=== PATIENT | male | born 2000 | race American Indian/Alaskan Native ===

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

== ENCOUNTER 2019-01-07 15:35 | Emergency (ER) | payer BC, OTHER ==
--- NOTE | 2019-01-07 15:42 | Emergency Department Report ---
Blank Doc - Documentation Documentation: This is a 18-year-old male that presents with right shoulder dislocation after washing hands. Has history of this. This initial assessment/diagnostic orders/clinical plan/treatment(s) is/are subject to change based on patient's health status, clinical progression and re-assessment by fellow clinical providers in the ED. Further treatment and workup at subsequent clinical providers discretion. Patient/guardians urged not to elope from the ED as their condition may be serious if not clinically assessed and managed. Initial orders include: 1- Patient sent to [facility] for further evaluation and treatment 2- xray
[2019-01-07] MEDS ORDERED: KETALAR IV ONE (15:55)
[2019-01-07] MEDS ORDERED: NACL 0.9% 500 ML 500 ML IV ONE (15:55)
[2019-01-07] MEDS ORDERED: DIPRIVAN 10 MG/ML IV ONE (15:55)
[2019-01-07] MEDS ORDERED: ZOFRAN IV ONE (15:55)
--- NOTE | 2019-01-07 15:56 | Emergency Department Report ---
Upper Extremity - HPI Chief Complaint: Extremity Injury, Upper Stated Complaint: R SHOULDER DISLOCATED Time Seen by Provider: 01/07/19 15:41 Upper Extremity: Right Shoulder Occurred When: Today Mechanism: Twist Severity: moderate Symptoms: Yes Pain with Movement, Yes Deformity, Yes Limited Range of Movement, No Numbness, No Weakness, No Swelling, No Bruising/Ecchymosis, No Laceration or Abrasion Other History: This is a pleasant 18-year-old gentleman. The patient is not known to this provider previously. Patient has a history of recurrent right- sided shoulder dislocations. Patient presents to the ER today with a complaint of right-sided shoulder dislocation. It happened after lifting. He denies other injuries and he denies other complaints. He makes no endorsement of weakness and numbness. His dislocation spontaneously reduced while he was getting initial plain films. He now has no complaints or pain in his right shoulder, and endorses full range of motion. ED Review of Systems ROS: Stated complaint: R SHOULDER DISLOCATED Other details as noted in HPI Comment: All other systems reviewed and negative Musculoskeletal: arthralgia, myalgia ED Past Medical Hx - Past Medical History Previous Medical History?: No - Surgical History Past Surgical History?: Yes Additional Surgical History: head - Social History Smoking Status: Current Every Day Smoker Substance Use Type: Alcohol, Marijuana Upper Extremity Exam - Exam General: Vital signs noted. No distress. Alert and acting appropriately. Extraocular movements intact. Tongue midline. No facial droop. Facial sensation intact to light touch in the V1, V2, V3 distribution bilaterally. 5 and 5 strength in 4 extremities.. Sensation is intact to light touch in 4 extremities. Gait within normal limits. 2+ pulses noted in the bilateral upper, lower extremities. Compartments soft. No long bony tenderness. The pelvis is stable. S1, S2, regular rate and rhythm. No abdominal tenderness. No rebound, guarding or peritoneal signs. Breath sounds clear to auscultation bilaterally. Head and Torso: No HEENT Abnormality, No Neck Tenderness, No Chest/Lungs Abnormality, No Abdominal Tenderness, No Back Tenderness Shoulder Exam: Yes Shoulder Tenderness, Yes Normal Range of Motion in Shoulder, No Clavicle Tenderness, No Shoulder Deformity, No AC Joint Tenderness Arm Exam: No Arm/Humerus Tenderness, No Arm Deformity Elbow: No Elbow Tenderness, No Normal Range of Motion in Elbow, No Elbow Deformity Forearm: No Forearm Tenderness, No Forearm Deformity, No Pain with Pronation, No Pain with Supination Wrist: Yes Normal ROM in Wrist, No Wrist Tenderness, No Wrist Deformity, No Snuffbox Tenderness, No Pain with Axial Thumb Compression Hand: Yes Normal ROM in Digit(s), No Hand Tenderness, No Hand Deformity, No Digit Tenderness, No Digit(s) Deformity, No Tendon Dysfunction CMS Exam: Yes Normal Distal Pulses, Yes Normal Capillary Refill, No Broken Skin, No Normal Distal Sensation ED Course Vital Signs 01/07/19 15:42 Temperature 98.2 F Pulse Rate 50 L Respiratory 16 Rate Blood Pressure 130/68 O2 Sat by Pulse 99 Oximetry ED Medical Decision Making - Lab Data Vital Signs 01/07/19 15:42 Temperature 98.2 F Pulse Rate 50 L Respiratory 16 Rate Blood Pressure 130/68 O2 Sat by Pulse 99 Oximetry - Radiology Data Radiology results: image reviewed interpreted by me: X-ray of the right shoulder demonstrates dislocation - Medical Decision Making Differential diagnosis, including but not limited to: Resolved spontaneous recurrent shoulder dislocation Assessment and plan: 18-year-old gentleman with clinically resolved right shoulder dislocation. He will be discharged in a shoulder sling, he'll be counseled to follow up with an outpatient orthopedist for surgical repair. He has no neurovascular deficits. He walks with a steady gait and is clinically sober at this time Critical care attestation.: If time is entered above; I have spent that time in minutes in the direct care of this critically ill patient, excluding procedure time. ED Disposition Clinical Impression: Recurrent dislocation, right shoulder Disposition: DC-01 TO HOME OR SELFCARE Is pt being admited?: No Does the pt Need Aspirin: No Condition: Stable Instructions: Shoulder Dislocation (ED) Additional Instructions: Rest, avoid heavy lifting, and avoid strenuous physical activities. Take [id number] ibuprofen and Tylenol as needed for pain. Keep the shoulder in a sling until follow up by an orthopedist. I do recommend follow-up with an orthopedic surgeon within the next 7-10 days. Patient will likely require surgical repair of the shoulder capsule/rotator cuff. Return to the emergency room right away with new, worsening or different symptoms not presents on initial emergency room evaluation. Referrals: VENKATESH RODRIGUEZ MD [Staff Physician] - 3-5 Days [facility] [Provider Group] - 3-5 Days Forms: Work/School Release Form(ED)
--- NOTE | 2019-01-07 16:27 | XRay Report ---
Right shoulder 2 views INDICATION / CLINICAL INFORMATION: shoulder pain. COMPARISON: 11/11/2018. FINDINGS: There is an anterior dislocation of the humeral head from the glenohumeral joint. There is no appreci able acute fracture. Signer Name: Nirmal Soria MD Signed: 01/07/2019 3:23 PM Workstation Name: [id number]
[2019-01-07 16:50] VITALS: BP 116/76
== END 2019-01-07 16:36 | disposition home or self-care (01) ==
LOC: ED 15:35
DX: M24.411 Recurrent dislocation, right shoulder (principal); M79.10 Myalgia, unspecified site; F17.200 Nicotine dependence, unspecified, uncomplicated; F12.10 Cannabis abuse, uncomplicated; X50.0XXA Overexertion from strenuous movement or load, initial encounter; Y93.89 Activity, other specified; Y92.89 Other specified places as the place of occurrence of the external cause; Y99.8 Other external cause status
CPT/HCPCS: 99284